=== PATIENT | male | born 1955 | race Caucasian/White ===

== ENCOUNTER → 2024-08-22 | Outpatient (CLI) | payer MEDICARE, SELFPAY ==
--- NOTE | 2024-08-22 14:37 | CT_ITS ---
PROCEDURE: SOFT TISSUE NECK WITH CONTRAST REASON FOR EXAM: 4 month history of sore throat following intubation. TECHNIQUE: CT of the soft tissues of the neck from the orbits to the upper mediastinum with intravenous contrast. CONTRAST: 100 cc of Isovue 300. COMPARISON: None. FINDINGS: Airway: Midline and patent. Salivary glands: Unremarkable. Lymph nodes: No cervical lymphadenopathy. Thyroid: Unremarkable. Vasculature: Carotid arteries and internal jugular veins are unremarkable. Orbits: Unremarkable at visualized levels. Paranasal sinuses and mastoids: Grossly clear at visualized levels. Lung apices: Clear. Upper mediastinum: Visualized mediastinum is unremarkable. Bones: Multilevel degenerative changes of the spine. CT/Soft Tissue Neck WITH Contrast IMPRESSION: No acute abnormality is seen. One or more dose reduction techniques were used (e.g., Automated exposure contr ol, adjustment of the mA and/or kV according to patient size, use of iterative reconstruction technique). Reading Location: [id number]
[2024-08-22 18:54] LABS: CREATININE FINGERSTICK < 1.0 mg/dL (0.70-1.30); EGFR FINGERSTICK > 60.0000 mL/min (>60)
== END | disposition home or self-care (01) ==
LOC: CT 14:32
PROVIDERS: Referring Provider Otolaryngology; Visit Provider Otolaryngology
DX: R13.10 Dysphagia, unspecified (principal); D10.9 Benign neoplasm of pharynx, unspecified
CPT/HCPCS: 70491; Q9967